=== PATIENT | male | born 1950 | race Caucasian/White ===

== ENCOUNTER → 2017-04-03 14:35 | Outpatient (CLI) | payer MEDICARE, BC, SELFPAY | PROVIDERS: Family Provider Family Medicine; PCP Family Medicine; Visit Provider Urology | DX: R97.20 Elevated prostate specific antigen [PSA] (principal) | CPT/HCPCS: 36415; 84153 ==

== ENCOUNTER → 2017-05-06 17:52 | Outpatient (CLI) | payer MEDICARE, BC, SELFPAY ==
--- NOTE | 2017-05-06 08:30 | PROSBIL_PTH ---
PATIENT: MARI JUNE LOC: [facility] U#:[id number] AGE/SX: 74/M ROOM: RE05/06/[address]: Dr. Jaime Galvez MD : 1950 BED: DIS: SPEC #: [id number] RECD: 05/06/17 16:58 STATUS: MILY LISE #: [id number] CHRISTOPHER: 05/06/17 08:[address]: Jaime Galvez DEPT: SURGICAL PATHOLOGY RECD BY: Ephraim Encinas ENTERED: 05/07/17 10:34 SP TYPE: PROST BX DAMIAN DR: Dr. Junior Hernández III, MD Tissues: A - PROSTATE RIGHT B - PROSTATE RIGHT C - PROSTATE RIGHT D - PROSTATE LEFT E - PROSTATE LEFT F - PROSTATE LEFT Procedures: PROSTATE BX HEADER OPERATION: Prostate biopsy PRE-OP DIAGNOSIS: Elevated PSA TISSUE SUBMITTED: A - Right apex, B - Right mid, C - Right base, D - Left apex, E - Left mid, F - Left base MICROSCOPIC DIAGNOSIS A. Right prostate, apex, core biopsy: Minimal chronic inflammation. B. Right prostate, mid, core biopsy: Minimal chronic inflammation. C. Right prostate, base, core biopsy: Mild chronic inflammation. D. Left prostate, apex, core biopsy: Benign prostatic tissue. E. Left prostate, mid, core biopsy: Minimal chronic inflammation. F. Left prostate, base, core biopsy: Focal glandular atrophy and mild chronic inflammation. AM:karolyn 05/08/17 MICROSCOPIC DESCRIPTION Slides are reviewed. GROSS DESCRIPTION A - Received is one container designated prostate, right apex. The specimen consists of one elongated fragment of light mcmahan-white soft tissue measuring 1 cm in length and 0.1 cm in diameter. The specimen is totally submitted in one cassette. B - Received is one container designated prostate, right mid. The specimen consists of two elongated fragments of light mcmahan-white soft tissue each measuring 1 cm in length and 0.1 cm in diameter. The specimen is totally submitted in one cassette. C - Received is one container designated prostate, right base. The specimen consists of two elongated fragments of light mcmahan-white soft tissue each measuring 1 cm in length and 0.1 cm in diameter. The specimen is totally submitted in one cassette. D - Received is one container designated prostate, left apex. The specimen consists of two elongated fragments of light mcmahan-white soft tissue each measuring 0.7 cm in length and 0.1 cm in diameter. The specimen is totally submitted in one cassette. E - Received is one container designated prostate, left mid. The specimen consists of three elongated fragments of light mcmahan-white soft tissue each measuring 0.8 cm in length and 0.1 cm in diameter. The specimen is totally submitted in one cassette. F - Received is one container designated prostate, left base. The specimen consists of two elongated fragments of light mcmahan-white soft tissue each measuring 1 cm in length and 0.1 cm in diameter. The specimen is totally submitted in one cassette. / AM:karolyn 05/07/17 TC:3 CPT: G0146
== END ==
PROVIDERS: Family Provider Family Medicine; Visit Provider Urology
DX: R97.20 Elevated prostate specific antigen [PSA] (principal)
CPT/HCPCS: 88305; G0416

== ENCOUNTER → 2017-12-03 10:15 | Outpatient (CLI) | payer MEDICARE, BC, OTHER, SELFPAY ==
[2017-12-03 11:27] LABS: PSA,Total- Diagnostic 3.92 ng/mL (0.0-4.0)
== END ==
PROVIDERS: Family Provider Family Medicine; PCP Family Medicine; Referring Provider Urology; Visit Provider Urology
DX: R97.20 Elevated prostate specific antigen [PSA] (principal)
CPT/HCPCS: 36415; 84153

== ENCOUNTER → 2018-12-08 09:42 | Outpatient (CLI) | payer MEDICARE, OTHER, SELFPAY ==
[2018-03-12 09:06] VITALS: BMI 31.8
[2018-12-08 11:36] LABS: PSA,Total- Diagnostic 5.63 ng/mL (0.0-4.0)
== END ==
LOC: LAB.FUTURE 09:49 → LAB 09:52
PROVIDERS: Family Provider Family Medicine; PCP Family Medicine; Referring Provider Urology; Visit Provider Urology
DX: R97.20 Elevated prostate specific antigen [PSA] (principal)
CPT/HCPCS: 36415; 84153

== ENCOUNTER → 2019-12-17 10:16 | Outpatient (CLI) | payer MEDICARE, OTHER, SELFPAY ==
[2019-03-27 10:29] VITALS: BMI 31.8
[2019-12-17 11:11] LABS: PSA,Total- Diagnostic 5.27 ng/mL (0.0-4.0)
== END ==
PROVIDERS: PCP Family Medicine; Referring Provider Urology; Visit Provider Urology
DX: R97.20 Elevated prostate specific antigen [PSA] (principal)
CPT/HCPCS: 36415; 84153

== ENCOUNTER → 2020-01-01 | Outpatient (CLI) | payer MEDICARE, OTHER, SELFPAY ==
[2020-01-01 12:33] VITALS: BMI 32.9
== END | disposition home or self-care (01) ==
LOC: MTDU 17:27
PROVIDERS: PCP Family Medicine; Referring Provider Physician Assistant Surgical; Visit Provider Physician Assistant Surgical
DX: Z20.828 Contact with and (suspected) exposure to other viral communicable diseases (principal)
CPT/HCPCS: 87635; C9803; U0003

== ENCOUNTER → 2020-12-21 10:07 | Outpatient (CLI) | payer MEDICARE, OTHER, SELFPAY ==
[2020-12-21 11:37] LABS: PSA,Total- Diagnostic 5.72 ng/mL (0.0-4.0)
== END ==
PROVIDERS: PCP Family Medicine; Referring Provider Urology; Visit Provider Urology
DX: R97.20 Elevated prostate specific antigen [PSA] (principal)
CPT/HCPCS: 36415; 84153

== ENCOUNTER 2021-02-21 15:04 | Outpatient (CLI) | payer MEDICARE, OTHER, SELFPAY ==
[2021-02-21 15:48] VITALS: BP 177/100; PULSE 89; RESP 18; TEMP 36.5; O2SAT 98; BMI 33.2
[2021-02-21] MEDS: 0.9% Saline Lock 10 ML Syringe IV (15:53)
[2021-02-21 16:25] VITALS: BP 151/78; PULSE 76; RESP 16; TEMP 36.9; O2SAT 96
[2021-02-21 17:18] VITALS: BP 158/90; PULSE 78; RESP 16; TEMP 36.5; O2SAT 100
== END 2021-02-21 17:25 | disposition home or self-care (01) ==
LOC: MS3OUT 15:04 → MS3 15:06
PROVIDERS: Referring Provider Nurse Practitioner Adult Health; Visit Provider Nurse Practitioner Adult Health
DX: Z23 Encounter for immunization (principal); U07.1 COVID-19
CPT/HCPCS: J7050; M0245; Q0245; A4216

== ENCOUNTER 2021-03-28 08:44 | Outpatient (CLI) | payer MEDICARE, OTHER, SELFPAY ==
--- NOTE | 2021-03-28 08:47 | BI_ITS ---
MAMMOGRAPHY - BILATERAL DIAGNOSTIC REASON FOR EXAM: Male, 70 years old. Painful enlargement of the left breast. PERTINENT HISTORY: Personal history of breast cancer. TECHNIQUE: Digital bilateral breast edmundo (3D mammographic acquisition) in the CC and MLO projections. 2-D mediolateral oblique (MLO) and craniocaudad (CC) views of both breasts were obtained. CAD: Full Field Digital Mammography with Computer Added Detection was performed. COMPARISON: None. Baseline examination. FINDINGS: Breast Composition: There are scattered areas of fibroglandular density. Asymmetrical breast tissue were more breast tissue is seen in the retroareolar region of the breast as compared to the right side. This most likely represents gynecomastia. Correlation with ultrasound is recommended. No other significant abnormalities are identified. BI/DIAG MAMM W/CAD, BILAT IMPRESSION: Asymmetrical breast tissue in the retroareolar region of the left breast as described. Correlation with ultrasound is recommended. ASSESSMENT CATEGORY: BIRADS Category 0: Incomplete. Need additional imaging evaluation. A letter regarding these results will be sent to the patient by the facility within 30 days. Approximately 10% of breast cancers are not detected by mammography. A normal mammogram should not delay biopsy of a clinically suspicious abnormality. Electronically Signed: Nicholas Galindo MD at 10:02 [facility] ,
--- NOTE | 2021-03-28 08:49 | US_ITS ---
STUDY: ULTRASOUND BREAST - LEFT REASON FOR EXAM: Male, 70 years old. Painful enlargement of the left breast. TECHNIQUE: Axial and longitudinal images of the LEFT breast were performed with a high resolution ultrasound transducer. # OF IMAGES: 40 COMPARISON: Comparison is made with prior mammogram done earlier today. FINDINGS: LEFT Breast: The appearance of retroareolar breast tissue. This is suggestive of gynecomastia. US/Breast Limited Unilateral IMPRESSION: Findings suggestive of gynecomastia. ASSESSMENT CATEGORY: BIRADS Category 2: Benign. A letter regarding these results will be sent to the patient by the facility within 30 days. Electronically Signed: Nicholas Galindo MD at 10:04 EST ,
== END 2021-03-28 23:59 | disposition short-term general hospital (02) ==
LOC: OPBI 08:44
PROVIDERS: PCP Family Medicine; Referring Provider Family Medicine; Visit Provider Family Medicine
DX: N63.0 Unspecified lump in unspecified breast (principal); R92.8 Other abnormal and inconclusive findings on diagnostic imaging of breast
CPT/HCPCS: 76642; 77062; 77066; G0279

== ENCOUNTER 2021-05-19 06:52 | Day surgery (SDC) | payer MEDICARE, OTHER, SELFPAY ==
[2021-05-19] VITALS (7 sets, daily range): BP systolic 89–150; BP diastolic 56–80; PULSE 57–69; RESP 16; TEMP 36.2–36.8; O2SAT 93–98; BMI 31.6
[2021-05-19] MEDS: Lactated Ringers 1,000 ML 15 ML IV (07:37)
--- NOTE | 2021-05-19 07:45 | HP.PCM_ITS ---
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 Song Gauthier MD) Family history of bowel obstruction Surgical History History of appendectomy History of cholecystectomy History of hernia repair Social History Smoking Status: Never smoker alcohol intake: current HPI HPI HPI: MARI JUNE, is a 70 M who presents to the office today for colonoscopy. His last colonoscopy was in 2009. Patient reports occasional blood only with hard bowel movements. No pain. No abdominal pain or with defecation. Patient reports no family history of colon cancer. Patient had an EGD 12 years ago as well which showed gastritis. The patient has longstanding GERD and takes PPI. ROS General General: No weight change, appetite, fatigue, colon cancer, breast cancer or weakness HEENT HEENT: Yes eye injury and eye surgery; No difficulty swallowing, swollen glands or hoarseness Endo Endocrine: No thyroid disease, diabetes mellitus, thyroid cancer, Hair loss, heat intolerance or cold intolerance Skin Skin: No rash or changing moles Breast Breast: No left breast lump, right breast lump, nipple discharge, breast pain, abnormal mammogram, abnormal US or breast enlargement Musc Musculoskeletal: No back problems, arthritis, rheumatoid arthritis, gout or joint pain Cardio Cardiovascular: No murmur, pacemaker, heart disease, atrial fibrillation, high blood pressure, heart attack, heart stent, palpitations, shortness of breat with exertion or chest pain Psych Psychiatric: No depression, anxiety or hearing voices Resp Respiratory: No shortness of breath, No sleep apnea, No cough, No COPD, No asthma, No emphysema and No wheezing Gastro Gastrointestinal: No abdominal pain, No nausea or vomiting, No diarrhea, No constipation, No blood in stool, No acid reflux, Yes hemorrhoids, No ulcers, No gallbladder problem and No black,tarry stools Andreas Hematologic: No blood thinners, No blood disorders, No bleeding, No anemia and No blood clots Neuro Neurologic: No system reviewed and no additional complaints, except as documented, No as per HPI, No abnormal gait, No abnormal hearing, No abnormal movements, No abnormal speech, No behavioral changes, No burning sensations, No confusion, No convulsions, No disequilibrium, No dizziness, No localized weakness, No frequent falls, No headache(s), No lack of coordination, No loss of vision, No memory loss, No numbness, No other visual disturbances, No radicular pain, No restless legs, No sensory deficit, No syncope, No tingling, No tremor(s), No weakness and No other Exam Const General: cooperative Orientation: alert and oriented x3 HENMT Head: normal to inspection Neck Neck: normal visual inspection and full ROM Chest Chest palpation & inspection: normal inspection of the chest Resp Effort & Inspection: normal respiratory effort Auscultation: clear to auscultation bilaterally Cardio Rate: regular rate Rhythm: regular rhythm GI Inspection: non-distended Palpation: soft and nontender Skin General: no rashes or lesions noted Neuro General: patient alert and patient oriented x3 Extrem General: full ROM Psych Appearance: grossly normal Mental Status: mental status grossly normal Assessment and Plan Assessment and Plan (1) Screen for colon cancer: Status: Acute (2) GERD (gastroesophageal reflux disease): Status: Acute Qualifiers: Esophagitis presence: esophagitis presence not specified Qualified Code(s): K21.9 - Gastro-esophageal reflux disease without esophagitis Orders: Orders: Colonoscopy Today Z12.11 EGD Today K21.9 Plan - Dr. Song Gauthier MD: Patient was last screening colonoscopy was 12 years ago and I recommended repeat screening colonoscopy. He denies any abdominal pain and reports only blood in his stool when he has a very hard bowel movement. He reports that he has longstanding GERD and I do recommend EGD for surveillance of esophagitis. I explained endoscopy in detail to the patient. I explained the risks including but not limited to stroke or heart attack with anesthesia, perforation of the GI tract, bleeding, infection. I explained that any of these could necessitate further emergency surgery. The patient understands and all questions were answered sufficiently. The patient wishes to proceed with procedure. Song Gauthier MD Pager: [facility] [address] [place] [address] [address] [place] [address] Office: I have re-examined the patient. There are no clinical changes since date of exam.
--- NOTE | 2021-05-19 08:37 | OP.EGD_ITS ---
Patient Name: Kai Gonzales Procedure Date: 05/19/2021 7:55 AM Date of : 1950 Age: 70 Procedure: Upper GI endoscopy Indications: Esophageal reflux Providers: Song Gauthier MD Medicines: Monitored Anesthesia Care Patient Profile: This is a 70 year old male. Refer to note in patient chart for documentation of history and physical. Complications: No immediate complications. Procedure: Pre-Anesthesia Assessment: - Prior to the procedure, a History and Physical was performed, and patient medications and allergies were reviewed. The patient's tolerance of previous anesthesia was also reviewed. The risks and benefits of the procedure and the sedation options and risks were discussed with the patient. All questions were answered, and informed consent was obtained. Prior Anticoagulants: The patient has taken no previous anticoagulant or antiplatelet agents. After reviewing the risks and benefits, the patient was deemed in satisfactory condition to undergo the procedure. After obtaining informed consent, the endoscope was passed under direct vision. Throughout the procedure, the patient's blood pressure, pulse, and oxygen saturations were monitored continuously. The Endoscope was introduced through the mouth, and advanced to the third part of duodenum. The upper GI endoscopy was accomplished without difficulty. The patient tolerated the procedure well. Scope In: 8:09:48 AM Scope Out: 8:10:49 AM Total Procedure Duration Time 0 hours 1 minute 1 second Findings: The esophagus was normal. The stomach was normal. The examined duodenum was normal. Impression: - Normal esophagus. - Normal stomach. - Normal examined duodenum. - No specimens collected. Recommendation: - Discharge patient to home. - Resume previous diet. - Continue present medications. Procedure Code(s): --- Professional --- 69039, Esophagogastroduodenoscopy, flexible, transoral; diagnostic, including collection of specimen(s) by brushing or washing, when performed (separate procedure) Diagnosis Code(s): --- Professional --- K21.9, Gastro-esophageal reflux disease without esophagitis CPT copyright 2017 [employer]. All rights reserved. The codes documented in this report are preliminary and upon marine diesel mechanic review may be revised to meet current compliance requirements. Song Gauthier MD 05/19/2021 8:36:56 AM This report has been signed electronically. Number of Addenda: 0 Note Initiated On: 05/19/2021 7:55 AM
--- NOTE | 2021-05-19 08:38 | OP.CCLET_ITS ---
05/19/2021 Sasha Hart [place] [id number] [address] Re : Upper GI endoscopy procedure for Kai Gonzales Dear Dr. Hart This procedure was performed on Wednesday, May 19, 2021. My impressions and recommendations are as follows: Impressions : - Normal esophagus. - Normal stomach. - Normal examined duodenum. - No specimens collected. Recommendations : - Discharge patient to home. - Resume previous diet. - Continue present medications. My findings are described in the full procedure note, which is enclosed. If I can be of further assistance, please feel free to contact me at Doctor phone number(s): , Work: . Sincerely, Song Gauthier MD 05/19/2021 8:36:56 AM This report has been signed electronically.
--- NOTE | 2021-05-19 08:41 | OP.COLON_ITS ---
Patient Name: Kai Gonzales Procedure Date: 05/19/2021 8:15 AM Date of : 1950 Age: 70 Procedure: Colonoscopy Indications: Screening for colorectal malignant neoplasm Providers: Song Gauthier MD Medicines: Monitored Anesthesia Care Patient Profile: This is a 70 year old male. Refer to note in patient chart for documentation of history and physical. Last Colonoscopy: more than 10 years ago. Complications: No immediate complications. Procedure: Pre-Anesthesia Assessment: - Prior to the procedure, a History and Physical was performed, and patient medications and allergies were reviewed. The patient's tolerance of previous anesthesia was also reviewed. The risks and benefits of the procedure and the sedation options and risks were discussed with the patient. All questions were answered, and informed consent was obtained. Prior Anticoagulants: The patient has taken no previous anticoagulant or antiplatelet agents. After reviewing the risks and benefits, the patient was deemed in satisfactory condition to undergo the procedure. After I obtained informed consent, the scope was passed under direct vision. Throughout the procedure, the patient's blood pressure, pulse, and oxygen saturations were monitored continuously. The pediatric colonoscope was introduced through the anus and advanced to the cecum, identified by appendiceal orifice and ileocecal valve. The colonoscopy was performed without difficulty. The patient tolerated the procedure well. The quality of the bowel preparation was good. Scope In: 8:19:09 AM Scope Withdrawal Time 0 hours 6 minutes 11 seconds Scope Out: 8:29:07 AM Total Procedure Duration Time 0 hours 9 minutes 58 seconds Findings: The entire examined colon appeared normal on direct and retroflexion views. Impression: - The entire examined colon is normal on direct and retroflexion views. - No specimens collected. Recommendation: - Discharge patient to home. - Resume previous diet. - Continue present medications. - Repeat colonoscopy is not recommended due to current age (66 years or older) for screening purposes. Procedure Code(s): --- Professional --- 69008, Colonoscopy, flexible; diagnostic, including collection of specimen(s) by brushing or washing, when performed (separate procedure) Diagnosis Code(s): --- Professional --- Z12.11, Encounter for screening for malignant neoplasm of colon CPT copyright 2017 [employer]. All rights reserved. The codes documented in this report are preliminary and upon javascript web developer review may be revised to meet current compliance requirements. Song Gauthier MD 05/19/2021 8:40:51 AM This report has been signed electronically. Number of Addenda: 0 Note Initiated On: 05/19/2021 8:15 AM
--- NOTE | 2021-05-19 08:42 | OP.CCLET_ITS ---
05/19/2021 Sasha Hart [place] [id number] [address] Re : Colonoscopy procedure for Kai Gonzales Dear Dr. Hart This procedure was performed on Wednesday, May 19, 2021. My impressions and recommendations are as follows: Impressions : - The entire examined colon is normal on direct and retroflexion views. - No specimens collected. Recommendations : - Discharge patient to home. - Resume previous diet. - Continue present medications. - Repeat colonoscopy is not recommended due to current age (66 years or older) for screening purposes. My findings are described in the full procedure note, which is enclosed. If I can be of further assistance, please feel free to contact me at Doctor phone number(s): , Work: . Sincerely, Song Gauthier MD 05/19/2021 8:40:51 AM This report has been signed electronically.
== END 2021-05-19 23:59 | disposition home or self-care (01) ==
LOC: EN 06:53 → AC 06:53
PROVIDERS: PCP Family Medicine; Referring Provider Family Medicine; Visit Provider Surgery
PROC: 0DJD8ZZ Inspection of Lower Intestinal Tract, Via Natural or Artificial Opening Endoscopic (ICD-10-PCS; CPT 45378; principal; 2021-05-19 07:55)
DX: Z12.11 Encounter for screening for malignant neoplasm of colon (principal); K21.9 Gastro-esophageal reflux disease without esophagitis; Z79.82 Long term (current) use of aspirin; Z79.899 Other long term (current) drug therapy
CPT/HCPCS: 43235; G0121; J7120; J2405

== ENCOUNTER → 2021-12-29 | Outpatient (CLI) | payer MEDICARE, OTHER, SELFPAY ==
[2021-12-29 10:29] LABS: PSA,Total- Diagnostic 7.19 ng/mL (0.0-4.0)
== END | disposition home or self-care (01) ==
PROVIDERS: PCP Family Medicine; Referring Provider Urology; Visit Provider Urology
DX: R97.20 Elevated prostate specific antigen [PSA] (principal)
CPT/HCPCS: 36415; 84153

== ENCOUNTER → 2023-01-03 | Outpatient (CLI) | payer MEDICARE, OTHER, SELFPAY ==
[2023-01-03 11:28] LABS: PSA,Total- Diagnostic 5.61 ng/mL (0.0-4.0)
== END | disposition home or self-care (01) ==
LOC: LAB 10:18
PROVIDERS: PCP Family Medicine; Referring Provider Urology; Visit Provider Urology
DX: R97.20 Elevated prostate specific antigen [PSA] (principal)
CPT/HCPCS: 36415; 84153

== ENCOUNTER → 2024-01-03 | Outpatient (CLI) | payer MEDICARE, OTHER, SELFPAY ==
[2024-01-03 11:17] LABS: PSA,Total- Diagnostic 5.72 ng/mL (0.0-4.0)
== END | disposition home or self-care (01) ==
LOC: LAB 09:34
PROVIDERS: PCP Family Medicine; Referring Provider Urology; Visit Provider Urology
DX: R97.20 Elevated prostate specific antigen [PSA] (principal)
CPT/HCPCS: 36415; 84153

== ENCOUNTER → 2024-06-05 | Outpatient (CLI) | payer MEDICARE, OTHER, SELFPAY ==
[2024-06-05 12:41] LABS: Absolute Lymphocyte Count 2.36 X10^3/uL (0.83-4.51); Absolute Neutrophil Count 3.6 X10^3/uL (2.0-7.7); Basophil# 0.06 X10^3/uL; Basophil% 0.9 % (0-1); Eosinophil# 0.16 X10^3/uL; Eosinophils% 2.3 % (0-5); Hematocrit 47.1 % (40-54); Hemoglobin 16.4 g/dL (13.0-16.5); Lymphocyte # 2.36 X10^3/ul (0.83-4.51); Lymphocyte % 34.1 % (19-41); Mean Corp Hgb Conc 34.8 g/dL (32-36); Mean Corpuscular Hgb 33.1 pg (27.0-32.0); Mean Platelet Vol. 9.5 fl (6.2-12.0); Monocyte# 0.73 X10^3/uL; Monocyte% 10.5 % (0-10); NRBC Flagged by Analyzer 0 % (0-5); Neutrophil # 3.59 X10^3/uL (2.7-7.7); Neutrophil % 51.9 % (47-70); Platelet Count 218 K/mm3 (150-450); RBC Distribution Width CV 13.2 % (11.6-14.6); RBC Distribution Width SD 46.3 fl (35.1-43.9); Red Blood Count 4.96 M/mm3 (4.6-6.2); White Blood Count 6.9 K/mm3 (4.4-11.0)
[2024-06-05 13:27] LABS: ALB/GLOB Ratio 1.3 RATIO (0.9-2.4); AST(SGOT) 37 U/L (<=37); Alanine Aminotransfer ALT/SGPT 36 U/L (<=46); Albumin, Serum 4.1 g/dL (3.4-4.8); Alkaline Phosphatase 68 U/L (40-129); Anion Gap 13 (5-15); BUN 10 mg/dL (4-19); BUN/Creat Ratio 10.7 RATIO (10-20); Calcium,Total 8.7 mg/dL (7.6-11.0); Carbon Dioxide 22.3 mmol/L (21.0-32.0); Chloride 106 mmol/L (98-108); Cholesterol 176 mg/dL (<=200); EST Glomerular Filtration Rate 90 (>60); Globulin 3.1 g/dL (2.2-4.2); Glucose 116 mg/dL (70-99); High Density Lipoprotein 37 mg/dL; Low Density Lipoprotein Calc. 121 mg/dL; Potassium 3.8 mmol/L (3.3-5.1); Protein, Total 7.2 g/dL (5.9-8.4); Sodium Level 141 mmol/L (133-145); Total Bilirubin 0.86 mg/dL (0.00-1.30); Triglycerides 93 mg/dL; Very Low Density Lipoprotein 19 mg/dL (5-40); cholesterol:hdl ratio screen 4.81
== END | disposition home or self-care (01) ==
LOC: BFHLAB 10:09
PROVIDERS: PCP Family Medicine; Visit Provider Family Medicine
DX: Z00.01 Encounter for general adult medical examination with abnormal findings (principal); E78.5 Hyperlipidemia, unspecified; N40.0 Benign prostatic hyperplasia without lower urinary tract symptoms; R03.0 Elevated blood-pressure reading, without diagnosis of hypertension
CPT/HCPCS: 36415; 80053; 80061; 85025

== ENCOUNTER → 2025-01-11 | Outpatient (CLI) | payer MEDICARE, OTHER, SELFPAY ==
[2025-01-11 10:13] LABS: PSA,Total- Diagnostic 6.27 ng/mL (0.00-4.00)
== END | disposition home or self-care (01) ==
LOC: LAB 09:10
PROVIDERS: PCP Family Medicine; Referring Provider Nurse Practitioner; Visit Provider Nurse Practitioner
DX: R97.20 Elevated prostate specific antigen [PSA] (principal)
CPT/HCPCS: 36415; 84153